=== PATIENT | female | born 1980 | race Caucasian/White ===

== ENCOUNTER 2018-11-05 22:51 | Outpatient (CLI) | payer OTHER ==
[~2018-11-05] VITALS: Ht 165.1 cm; Wt 78.5 kg
[2018-11-05 23:28] VITALS: BP 114/65; PULSE 81; RESP 18
[2018-11-05] MEDS ORDERED: LORA5TAB4 PO (23:34)
[2018-11-05] MEDS ORDERED: PREN-19 PO (23:34)
[2018-11-06] MEDS ORDERED: LACTATED RINGER'S 1,000 ML IV ONE (01:30)
--- NOTE | 2018-11-06 01:42 | HP ---
Date/Time of Note Date/Time of Note DATE: 11/06/18 TIME: 01:39 OB - History Hx of Present Free Text/Dictation November 06, 2018 : 6 Para: 2 Other Concerns: 37-year-old with IUP at 34 weeks and 1 day and care in [place] presented with complaint of contractions. She denies any leaking of fluid or vaginal bleeding or decreased movement. Reports recently moved from [place] Her records are not available. Patient denies any urinary symptoms. Noted to have contractions every 3-4 minutes initially when arrived on the monitor that significantly improved after hydration Ultrasound showed slightly shortening of the cervix. Cervical length: 2.6 cm Patient was admitted for observation due to presents of contractions and slight shortening of the cervix. Past Family/Social History * Past Medical, Surgical, Family and Obstetric Histories reviewed from chart. OB Admission Exam Vital Signs Vital Signs Vital Signs Date Temp Pulse Resp B/P (MAP) Pulse Ox O2 O2 Flow FiO2 Time Delivery Rate 11/05/18 97.9 81 18 114/65 Room Air 23:28 (81) Physical Exam HEENT: WNL Heart: Rhythm Normal Lungs: Clear Abdomen: WNL Cervical Dilatation: None Effacement: 0% Membranes: Intact Heart Rate: 130's Accelerations: Accelerations Present Decelerations: No Decelerations Varibility: Moderate Contractions on Admission: < 5 Minutes Apart Intensity: Moderate OB Assessment/Plan Other Assessment: IUP at 34 weeks and 1 day contraction, likely due to dehydration Improved significantly after hydration Slight cervical shortening Patient is asymptomatic now Will be admitted for observation Will try to attempt records Ultrasound for estimated weight Case was sigend out to the up coming laborist for follow up ZAFAR MELISSA MD Nov 06, 2018 01:42
[2018-11-06] MEDS ORDERED: LACTATED RINGER'S 1,000 ML IV SCH (02:30)
== END 2018-11-06 06:45 | disposition home or self-care (01) ==
LOC: OBT 22:51 → L-D 22:51 → OBT 11-06 06:45
PROVIDERS: ATTEND Obstetrics & Gynecology Obstetrics
DX: O62.9 Abnormality of forces of labor, unspecified (principal); O09.523 Supervision of elderly multigravida, third trimester; Z3A.34 34 weeks gestation of pregnancy
CPT/HCPCS: 36415; 76815; 76817; 81001; 85025; 96360; 96361; J7120; Z7500; G0463

== ENCOUNTER 2018-11-06 19:25 | Outpatient (CLI) | payer OTHER ==
[~2018-11-06] VITALS: Ht 165.1 cm; Wt 79.9 kg
[~2018-11-06 19:25] MED LIST: LORA5TAB4 PO; PREN-19 PO
[2018-11-06 19:32] VITALS: Ht 165.1 cm; Wt 79.9 kg
--- NOTE | 2018-11-06 21:09 | PN ---
Triage Information Date/Time Nov 06, 2018 Reason for visit: Uterine contractions Weeks of Gestation 34w 2d /Para 6/2 Diabetes: none Hypertention: none Additional information Pt was observed last night for 8 hours without any change and minimal contractions. Her cervical exam was thick and closed last night and the cervical length was 2.5 cm with an EFW of 2576 grams and an TIKI of 12.3 cm. Pt went home and rested all day and dranks lots of water and still just feels crampiness. Reports normal FM and no leaking or bleeding. POBHx: x 2 at term. PMHx: none. PSHx: none. NKDA Objective T=97.7 BP 116/70 Heart Rate: 140's Heart Rate Comments Accels to 170 bpm. No decels. Contractions: >10 Minutes Apart (One UC over an hour. Uterus was palpated di rectly when pt reported cramping and it was very distinctly soft.) Exam Thick and closed. Disposition: Discharge Assessment/Plan A: IUP at 34w 2d. False labor. P: D/C home. PTL precautions reviewed. PT to get a doctor this Wednesday with her new insurance here since moving from [place]. Pt feels very comfortable going home. CAMMIE PAINTER MD Nov 06, 2018 21:09
--- NOTE | 2018-11-06 23:51 | TRIAGE ---
OB Triage Datetime Report Generated by CPN: 11/06/2018 23:50 Datetime: 11/06/2018 21:01 Stage of : OB Triage Labor Evaluation Frequency: irregular Monitor Mode: External Duration (sec)2399: 30-50 Pattern: Normal: <= 5 Contractions in 10 Minutes Resting Tone [place]: Relaxed Heart Rate FHR Baseline Rate: 145 Monitor Mode: External US Variability: Moderate 6-25 bpm Accelerations: 15X15 Decelerations: None Category: Category I Datetime: 11/06/2018 21:00 Stage of : OB Triage Vaginal Exam Dilatation (cms): 0.0 Effacement (%): 0 Station: -2 Exam By: Allie JENKINS Datetime: 11/06/2018 20:36 Stage of : OB Triage Labor Evaluation Frequency: IRREGULAR Monitor Mode: External Duration (sec)2399: 40-60 Quality: Mild Pattern: Normal: <= 5 Contractions in 10 Minutes Resting Tone [place]: Relaxed Heart Rate FHR Baseline Rate: 145 Monitor Mode: External US Variability: Moderate 6-25 bpm Accelerations: 15X15 Decelerations: None Category: Category I Datetime: 11/06/2018 20:06 Time of Arrival: 11/06/2018 19:53 EGA: 34.2 Arrived By: Ambulatory Arrived From: Home Chief Complaint: CRAMPING Movement: Present Contractions: Irregular Rupture of Membranes: Denies Vaginal Bleeding: None Vaginal Discharge: Denies Recent Sexual Intercouse: Denies Abdominal Trauma: Not Applicable Patient Complaints: Cramping Time Provider Notified: 11/06/2018 19:53 Provider Notified: DR. PAINTER Initial Plan: EFM, CALL OB Datetime: 11/06/2018 19:56 Stage of : OB Triage Maternal Assessment Level of Consciousness: Fully Conscious DTR's/Clonus: DTRs 2+; No Clonus Headache: Denies Blurred Vision: No Respiratory Effort: Unlabored; Regular Rhythm; Equal Expansion Breath Sounds, Left: Clear and Equal Breath Sounds, Right: Clear and Equal Nausea/Vomiting: Denies RUQ Epigastric Pain: Denies Lower Extremities Edema: None Degree: None Upper Extremities Edema: None Degree: None Facial Edema: None Temperature Route: Oral Fall Risk Assessment History of Falling: (0) No Secondary Diagnosis: (0) No Ambulatory Aid: (0) Bedrest/Nurse Assist IV Therapy: (0) No Gait: (0) Normal/Bedrest/Immobile Mental Status: (0) Oriented to Own Ability Fall Score: 0 Fall Risk Score Definition: No Risk: No action required Pain Assessment Pain Scale: 3 Pain Presence: Constant Pain Type: Cramping Pain Location: Abdomen Pain Relief Measures: Comfort Measures Datetime: 11/06/2018 19:50 Stage of : OB Triage Labor Evaluation Frequency: X1 Monitor Mode: External Duration (sec)2399: 50 Quality: Mild Pattern: Normal: <= 5 Contractions in 10 Minutes Resting Tone [place]: Relaxed Heart Rate FHR Baseline Rate: 145 Monitor Mode: External US Variability: Moderate 6-25 bpm Accelerations: 10X10 Decelerations: None Category: Category I Datetime: 11/06/2018 06:40 Stage of : OB Triage Monitor Mode: External Quality: Mild Pattern: Normal: <= 5 Contractions in 10 Minutes Resting Tone [place]: Relaxed Heart Rate FHR Baseline Rate: 130 Monitor Mode: External US FHR Baseline Changes: No Baseline Change Variability: Moderate 6-25 bpm Accelerations: 15X15 Decelerations: None Category: Category I Pain Assessment Pain Scale: 1 Pain Presence: Intermittent Pain Type: Cramping Pain Location: Abdomen Pain Assessment Comments: Pt states she feels rare cramping Datetime: 11/06/2018 05:29 Stage of : OB Triage Labor Evaluation Frequency: 10-15 Monitor Mode: External Quality: Mild Pattern: Normal: <= 5 Contractions in 10 Minutes Resting Tone [place]: Relaxed Heart Rate FHR Baseline Rate: 130 Monitor Mode: External US FHR Baseline Changes: No Baseline Change Variability: Moderate 6-25 bpm Accelerations: 15X15 Decelerations: None Category: Category I Datetime: 11/06/2018 04:30 Stage of : OB Triage Monitor Mode: External Quality: Mild Resting Tone [place]: Relaxed Heart Rate FHR Baseline Rate: 135 Monitor Mode: External US Variability: Moderate 6-25 bpm Accelerations: 15X15 Decelerations: None Category: Category I Pain Assessment Pain Scale: 0 Pain Presence: None/Denies Pain Type: N/A Datetime: 11/06/2018 03:28 Stage of : OB Triage Monitor Mode: External Quality: Mild Pattern: Normal: <= 5 Contractions in 10 Minutes Resting Tone [place]: Relaxed Heart Rate FHR Baseline Rate: 130 Monitor Mode: External US FHR Baseline Changes: No Baseline Change Variability: Moderate 6-25 bpm Accelerations: 15X15 Decelerations: None Category: Category I Datetime: 11/06/2018 02:20 Stage of : OB Triage Monitor Mode: External Quality: Mild Pattern: Normal: <= 5 Contractions in 10 Minutes Resting Tone [place]: Relaxed Heart Rate FHR Baseline Rate: 135 Monitor Mode: External US FHR Baseline Changes: No Baseline Change Variability: Moderate 6-25 bpm Accelerations: 15X15 Decelerations: None Category: Category I Pain Assessment Pain Scale: 3 Pain Presence: Intermittent Pain Type: Cramping Pain Location: Abdomen Datetime: 11/06/2018 01:25 Labor Evaluation Frequency: 10 Monitor Mode: External Quality: Mild Pattern: Normal: <= 5 Contractions in 10 Minutes Resting Tone [place]: Relaxed Heart Rate FHR Baseline Rate: 135 Monitor Mode: External US FHR Baseline Changes: No Baseline Change Variability: Moderate 6-25 bpm Accelerations: 15X15 Decelerations: None Category: Category I Datetime: 11/06/2018 00:46 FHR Baseline Changes: No Baseline Change Variability: Moderate 6-25 bpm Accelerations: 15X15 Datetime: 11/06/2018 00:22 Vaginal Exam Dilatation (cms): 0.0 Effacement (%): 0 Station: -2 Exam By: Allie JENKINS Cervix, Position: Posterior Datetime: 11/05/2018 23:15 Time of Arrival: 11/05/2018 22:43 EGA: 34.1 Arrived By: Ambulatory Arrived From: Home Chief Complaint: c/o ucs Movement: Present Contractions: Regular Time Contractions Began: 11/05/2018 21:20 Contractions: q6-8 Rupture of Membranes: Denies Vaginal Bleeding: None Vaginal Discharge: Denies Recent Sexual Intercouse: Denies Abdominal Trauma: Not Applicable Patient Complaints: Contractions Additional Patient Complaints: Pt states P[place] in [place] Time Provider Notified: 11/05/2018 23:30 Provider Notified: Dr Solorzano Initial Plan: EFM,UA Datetime: 11/05/2018 23:00 Stage of : OB Triage Maternal Assessment Level of Consciousness: Fully Conscious Headache: Denies Blurred Vision: No Respiratory Effort: Unlabored Nausea/Vomiting: Denies RUQ Epigastric Pain: Denies Facial Edema: None Monitor Mode: External Resting Tone [place]: Relaxed Monitor Mode: External US Comments: FHT 140 Pain Assessment Pain Scale: 3 Pain Presence: Intermittent Pain Type: Cramping Pain Location: Abdomen
== END 2018-11-06 21:05 | disposition home or self-care (01) ==
LOC: OBT 19:25 → L-D 19:26 → OBT 21:05
PROVIDERS: ATTEND Obstetrics & Gynecology Obstetrics
DX: O62.9 Abnormality of forces of labor, unspecified (principal); O09.523 Supervision of elderly multigravida, third trimester; Z3A.34 34 weeks gestation of pregnancy
CPT/HCPCS: G0463

== ENCOUNTER 2018-11-27 12:55 | Inpatient (IN) | payer OTHER ==
[~2018-11-27] VITALS: Ht 165.1 cm; Wt 65.2 kg
[2018-11-27 13:30] VITALS: Ht 165.1 cm; Wt 65.2 kg
--- NOTE | 2018-11-27 15:49 | TRIAGE ---
OB Triage Datetime Report Generated by CPN: 11/27/2018 15:49 Datetime: 11/27/2018 15:39 Maternal Assessment Level of Consciousness: Fully Conscious DTR's/Clonus: DTRs 1+ Headache: Denies Blurred Vision: No Respiratory Effort: Unlabored Breath Sounds, Left: Clear and Equal Breath Sounds, Right: Clear and Equal Nausea/Vomiting: Denies RUQ Epigastric Pain: Denies Facial Edema: None Labor Evaluation Frequency: 2-5 Monitor Mode: External Duration (sec)2399: 60-70 Quality: Mild Pattern: Normal: <= 5 Contractions in 10 Minutes Resting Tone [place]: Relaxed Heart Rate FHR Baseline Rate: 135 Monitor Mode: External US Variability: Moderate 6-25 bpm Accelerations: 15X15 Decelerations: None Category: Category I Pain Assessment Pain Scale: 5 Pain Presence: Intermittent Pain Type: Contraction Pain Location: Back Pain Goal: 3 Vaginal Exam Dilatation (cms): 2.0 Effacement (%): 60 Station: -1 Exam By: WALKER GREENBERG Membrane Status: Intact Vaginal Bleeding: None Cervix, Consistency: Soft Cervix, Position: Midposition Presentation 'A': Cephalic Datetime: 11/27/2018 14:54 Pain Assessment Comments: PT STATES FEELING UC'S MORE STRONGER Datetime: 11/27/2018 13:20 Maternal Assessment Level of Consciousness: Fully Conscious DTR's/Clonus: DTRs 1+ Headache: Denies Blurred Vision: No Respiratory Effort: Unlabored Breath Sounds, Left: Clear and Equal Breath Sounds, Right: Clear and Equal Nausea/Vomiting: Denies RUQ Epigastric Pain: Denies Facial Edema: None Labor Evaluation Frequency: X2 Monitor Mode: External Duration (sec)2399: 60-70 Quality: Mild Pattern: Normal: <= 5 Contractions in 10 Minutes Resting Tone [place]: Relaxed Heart Rate FHR Baseline Rate: 135 Monitor Mode: External US Variability: Moderate 6-25 bpm Accelerations: 15X15 Decelerations: None Category: Category I Membrane Status: Intact Datetime: 11/27/2018 12:58 Assessment Type: Triage Maternal Assessment Level of Consciousness: Fully Conscious DTR's/Clonus: DTRs 2+; No Clonus Headache: Denies Blurred Vision: No Respiratory Effort: Unlabored; Regular Rhythm; Equal Expansion Breath Sounds, Left: Clear and Equal Breath Sounds, Right: Clear and Equal Nausea/Vomiting: Denies RUQ Epigastric Pain: Denies Lower Extremities Edema: None Degree: None Upper Extremities Edema: None Degree: None Facial Edema: None Fall Risk Assessment History of Falling: (0) No Secondary Diagnosis: (0) No Ambulatory Aid: (0) Bedrest/Nurse Assist IV Therapy: (0) No Gait: (0) Normal/Bedrest/Immobile Mental Status: (0) Oriented to Own Ability Fall Score: 0 Fall Risk Score Definition: No Risk: No action required Datetime: 11/27/2018 12:57 Time of Arrival: 11/27/2018 12:57 EGA: 37.2 Arrived By: Ambulatory Arrived From: Home Chief Complaint: PT CAME IN C/O UC'S SINCE THIS AM 5 MIN APART Movement: Present Contractions: Denies/Absent Time Contractions Began: 11/27/2018 09:00 Contractions: 5 MIN Rupture of Membranes: Denies Vaginal Discharge: Denies Recent Sexual Intercouse: Denies Abdominal Trauma: Not Applicable Patient Complaints: Contractions Additional Patient Complaints: NONE Time Provider Notified: 11/27/2018 13:05 Provider Notified: JING Initial Plan: MONITOR, BPP AND VE Datetime: 11/06/2018 20:06 EGA: 34.2 Datetime: 11/06/2018 19:56 Fall Score: 0 Fall Risk Score Definition: No Risk: No action required Datetime: 11/05/2018 23:15 EGA: 34.1
[2018-11-27] MEDS ORDERED: METHYLERGONOVINE 0.2 MG INJ IM PRN (17:00)
[2018-11-27] MEDS ORDERED: OXYTOCIN 30 UNITS/LR 500 ML IV SCH ×2 (17:00)
[2018-11-27] MEDS ORDERED: CARBOPROST 250 MCG INJ IM PRN (17:00)
[2018-11-27] MEDS ORDERED: MISOPROSTOL 200 MCG TAB PR PRN (17:00)
[2018-11-27] MEDS ORDERED: LIDOCAINE 1% (MPF) 30 ML INJ INJ PRN (17:00)
[2018-11-27] MEDS ORDERED: OXYTOCIN 30 UNITS/LR 500 ML IV PRN (17:00)
[2018-11-27] MEDS ORDERED: MOMETASONE 0.24 GM INHALER INH PRN (17:02)
--- NOTE | 2018-11-27 17:13 | HP ---
Date/Time of Note Date/Time of Note DATE: 11/27/18 TIME: 17:12 OB - History Hx of Present : 6 Para: 2 Care: Good Care Ultrasounds: Normal mid trimester US Medical Complications: None Past Family/Social History * Past Medical, Surgical, Family and Obstetric Histories reviewed from chart. OB Admission Exam Physical Exam Abdomen: WNL Extremities: Normal Cervical Dilatation: 3cm Effacement: 75% Station: -1 Membranes: Intact Heart Rate: 140's Accelerations: Accelerations Present Decelerations: No Decelerations Varibility: Moderate Contractions on Admission: 6-10 Minutes Apart Last 72 hours Lab Results CBC & BMP 11/27/18 17:01 OB Assessment/Plan Reason for admission: observation Other Assessment: PMH Denies PSH Denies Plan: Expectant Management Other plan: IV hydration Observation YANIRA CH M.D. Nov 27, 2018 17:13
[2018-11-27] MEDS: LACTATED RINGER'S 1,000 ML IV SCH (18:19)
[2018-11-27] MEDS ORDERED: AMPICILLIN 2 GM/NS (PMX) 100 ML IV ONE (20:30)
[2018-11-27] MEDS ORDERED: MINERAL OIL LIGHT 10 ML VIAL TOP PRN (20:30)
[2018-11-28] MEDS: LACTATED RINGER'S 1,000 ML IV SCH ×3 (01:17→22:46)
[2018-11-28] MEDS: AMPICILLIN 1 GM/NS (PMX) 50 ML IV SCH ×3 (01:19→12:49)
[2018-11-28] MEDS ORDERED: OXYTOCIN 30 UNITS/LR 500 ML IV SCH ×2 (12:30→18:27)
[2018-11-28] MEDS ORDERED: BUTORPHANOL 2 MG INJ ONE (16:11)
[2018-11-28] MEDS ORDERED: BUTORPHANOL 2 MG INJ IV PRN (16:30)
[2018-11-28] MEDS ORDERED: BUTORPHANOL 1 MG INJ IV PRN (16:30)
--- NOTE | 2018-11-28 17:08 | LDN ---
Date/Time of Note Date/Time of Note DATE: 11/28/18 TIME: 17:07 Delivery Summary 38+ Placenta Delivered: Spontaneously Meconium: none Episiotomy: No Anesthesia type: None Estimated blood loss: 200 Sponge & Needle done & correct: Yes All needle counts correct: Yes Any foreign bodies felt in the: No Infant Delivery Information Sex Sex: female Apgars 1 Minute: 8 5 Minute: 9 Suctioning Nose & mouth suctioned at steff: Yes Delee suction performed: Yes Umbilical Cord Umbilical cord with: 3 Vessels Cord presentations: nuchal cord (x1) Cord Blood was obtained: Yes Mother & Baby Disposition Disposition Mom & Baby to Maternity; Good: Yes Baby to NICU: No YANIRA CH M.D. Nov 28, 2018 17:08
[2018-11-28] MEDS ORDERED: IBUPROFEN 600 MG TAB PO ONE (18:30)
[2018-11-28] MEDS ORDERED: NACL 0.9% 3 ML SYG IV SCH (18:30)
[2018-11-28] MEDS ORDERED: WITCH HAZEL/GLYCERIN PAD PR PRN (18:30)
[2018-11-28] MEDS ORDERED: ONDANSETRON 4 MG TAB PO PRN (18:30)
[2018-11-28] MEDS ORDERED: MISOPROSTOL 200 MCG TAB PR PRN (18:30)
[2018-11-28] MEDS ORDERED: LANOLIN HPA 1 PKT TOP PRN (18:30)
[2018-11-28] MEDS ORDERED: METHYLERGONOVINE 0.2 MG INJ IM PRN (18:30)
[2018-11-28] MEDS ORDERED: ZOLPIDEM 5 MG TAB PO PRN (18:30)
[2018-11-28] MEDS ORDERED: ONDANSETRON 4 MG INJ IV PRN (18:30)
[2018-11-28] MEDS ORDERED: CARBOPROST 250 MCG INJ IM PRN (18:30)
[2018-11-28] MEDS: IBUPROFEN 600 MG TAB PO SCH ×2 (18:30→23:06)
[2018-11-28] MEDS ORDERED: SENNA/DOCUSATE NA (8.6MG/50MG) TAB PO PRN (18:30)
[2018-11-28] MEDS ORDERED: OXYTOCIN 30 UNITS/LR 500 ML IV PRN (18:30)
[2018-11-28 18:49] VITALS: BP 117/66; PULSE 74; RESP 22
[2018-11-28] MEDS: OXYCODONE/ASPIRIN (4.88/325) TAB PO PRN (19:01)
[2018-11-28 20:30] VITALS: BP 118/7; PULSE 72; RESP 18
[2018-11-28] MEDS: SENNA/DOCUSATE NA (8.6MG/50MG) TAB PO SCH (20:31)
[2018-11-28] MEDS ORDERED: LORATADINE 10 MG TAB PO PRN (22:30)
[2018-11-28 23:30] VITALS: BP 119/62; PULSE 74; RESP 18
[2018-11-29] MEDS: OXYCODONE/ASPIRIN (4.88/325) TAB PO PRN (00:08)
[2018-11-29] MEDS: LACTATED RINGER'S 1,000 ML IV SCH ×2 (01:30→09:30)
[2018-11-29 05:09] VITALS: BP 118/62; PULSE 75; RESP 18
[2018-11-29] MEDS: IBUPROFEN 600 MG TAB PO SCH ×4 (05:21→23:31)
[2018-11-29] MEDS: ACETAMINOPHEN 325 MG TAB PO PRN ×3 (06:24→15:04)
[2018-11-29 08:20] VITALS: BP 94/51; PULSE 72; RESP 16
[2018-11-29] MEDS: SENNA/DOCUSATE NA (8.6MG/50MG) TAB PO SCH ×3 (09:00→21:38)
--- NOTE | 2018-11-29 15:31 | QN ---
Documentation Comment PPD#1 is table afebrile tolerates diet No VB +BM Voids No sign of Depression VS stable Gen NAD Abd soft NT ND Genitalia No blood at perineum --->Discharge with precautions --->Follow up with her provider in 2 weeks YANIRA CH M.D. Nov 29, 2018 15:31
--- NOTE | 2018-11-29 15:34 | DS ---
Date/Time of Note Date/Time of Note DATE: 11/29/18 TIME: 15:33 Discharge Summary Admission/Discharge Info Admit Date/Time Nov 27, 2018 at 15:34 Discharge Date/Time 11/29/2018 Discharge Diagnosis Patient Condition: Good Hospital Course uneventful Home Meds Reported Medications Loratadine* (Claritin*) 5 Mg Tab.rapdis, 5 MG PO DAILY, #30 TAB 11/05/18 Vit #76/Iron,Carb/FA (Prenatabs Rx Tablet) 1 Each Tablet, 1 EACH PO DAILY, TAB 11/05/18 Primary Care Provider Not On Staff Doctor Pending Labs Laboratory Tests Test 11/29/18 07:21 11/29/18 07:43 Lab Scanned Report [facility] [id number] White Blood Count 12.7 10^3/ul (4.8-10.8) Red Blood Count 3.85 10^6/ul (4.20-5.40) Hemoglobin 11.9 g/dl (12.0-16.0) Hematocrit 36.1 % (37.0-47.0) Mean Corpuscular Volume 93.8 fl (82.0-101.0) Mean Corpuscular Hemoglobin 30.9 pg (29.0-33.0) Mean Corpuscular 33.0 g/dl (32.0-37.0) Hemoglobin Concent Red Cell Distribution Width 13.0 % (11.5-14.5) Platelet Count 258 10^3/UL (140-415) Mean Platelet Volume 10.3 fl (7.4-10.4) Immature Granulocytes % 0.500 % (0.001-0.429) Neutrophils % 65.5 % (39.0-77.0) Lymphocytes % 22.5 % (15.0-51.0) Monocytes % 8.0 % (0.0-11.0) Eosinophils % 2.9 % (0.0-7.0) Basophils % 0.6 % (0.0-2.0) Nucleated Red Blood Cells % 0.0 /100WBC (0.0-0.0) Immature Granulocytes # 0.060 10^3/ul (0.0-0.031) Neutrophils # 8.3 10^3/ul (1.6-7.5) Lymphocytes # 2.9 10^3/ul (0.8-2.9) Monocytes # 1.0 10^3/ul (0.3-0.9) Eosinophils # 0.4 10^3/ul (0.0-0.5) Basophils # 0.1 10^3/ul (0.0-0.1) Nucleated Red Blood Cells # 0.0 10^3/ul (0.0-0.0) YANIRA CH M.D. Nov 29, 2018 15:34
[2018-11-29 20:05] VITALS: BP 114/73; PULSE 86; RESP 19
[2018-11-30] MEDS: ACETAMINOPHEN 325 MG TAB PO PRN ×3 (01:41→13:15)
[2018-11-30 03:35] VITALS: BP 93/55; PULSE 71; RESP 20
[2018-11-30] MEDS: IBUPROFEN 600 MG TAB PO SCH ×2 (05:42→12:00)
[2018-11-30] MEDS: SENNA/DOCUSATE NA (8.6MG/50MG) TAB PO SCH (09:00)
[2018-11-30] MEDS ORDERED: DIPHTH/TET/ACEL PERTUSS (ADULT) 0.5 ML VIAL IM* ONE (09:00)
[2018-11-30 09:01] VITALS: BP 95/54; PULSE 66; RESP 18
[2018-11-30] MEDS ORDERED: INFLUENZA VIRUS VACCINE 0.5 ML (DISPENSING) IM* ONE (10:00)
== END 2018-11-30 15:37 | disposition home or self-care (01) | DRG 807 ==
LOC: OBT 12:55 → L-D 12:56 → OBT 15:34 → L-D 16:02 → PP1 11-28 18:16
PROVIDERS: ADMIT Obstetrics & Gynecology; ATTEND Obstetrics & Gynecology
PROC: 10E0XZZ Delivery of Products of Conception, External Approach (ICD-10-PCS; principal; 2018-11-28)
DX: O69.81X0 Labor and delivery complicated by cord around neck, without compression, not applicable or unspecified (principal); Z37.0 Single live birth; Z3A.38 38 weeks gestation of pregnancy
CPT/HCPCS: 76818; 85025; 85610; 85730; 86592; 86850; 86870; 86885; 86900; 86901; 87340; 90686; 90715; 99464; G0463; J0290; J0595; J2590; J2790; J7120